=== PATIENT | female | born 1935 | race Hispanic/Latino ===

== ENCOUNTER 2017-03-27 16:57 | Emergency (ER) | payer MEDICARE ==
[2017-03-27 17:16] VITALS: BP 135/82; PULSE 82; RESP 16; TEMP 98.5; O2SAT 98
--- NOTE | 2017-03-27 18:15 | ED PDOC ---
Arrival/HPI - General Historian: Patient EM Caveat: Acuity of Condition - History of Present Illness Time/Duration: Prior to Arrival Symptom Onset: Gradual Activities at Onset: Rest Context: Home (garden) <Jonn Baer - Last Filed: 03/27/17 20:08> <France Good - Last Filed: 03/27/17 20:20> - General Chief Complaint: Allergic Reaction Time Seen by Provider: 03/27/17 17:17 - History of Present Illness Narrative History of Present Illness (Text): 03/27/17 18:01 Patient is a 81 year old female with a past medical history of HTN who presents with complaints of a rash which started on her right arm. Patient states it started with one lesion. Patient states due to itchiness, she began scratching which led to outbreak spreading downward on right forearm as well as left forearm. States a week prior she was gardening and has thorny bushes in her garden. She denies shortness of breath, numbness and tingling, burning sensation , chest pain, n/v/d, dizziness, weakness. (Jonn Baer) Past Medical History - Provider Review Nursing Documentation Reviewed: Yes - Cardiac Hx Cardiac Disorders: Yes Hx Hypertension: Yes - Pulmonary Hx Respiratory Disorders: No - Neurological Hx Neurological Disorder: No - HEENT Hx HEENT Disorder: No - Renal Hx Renal Disorder: No - Endocrine/Metabolic Hx Endocrine Disorders: No - Hematological/Oncological Hx Blood Disorders: No - Integumentary Hx Dermatological Disorder: No - Musculoskeletal/Rheumatological Hx Musculoskeletal Disorders: No - Gastrointestinal Hx Gastrointestinal Disorders: No - Genitourinary/Gynecological Hx Genitourinary Disorders: No - Psychiatric Hx Psychophysiologic Disorder: Yes Hx Anxiety: Yes Hx Substance Use: No <Jonn Baer - Last Filed: 03/27/17 20:08> Family/Social History - Physician Review Nursing Documentation Reviewed: Yes Family/Social History: Other Smoking Status: Never Smoked Hx Alcohol Use: No Hx Substance Use: No <Jonn Baer - Last Filed: 03/27/17 20:08> <France Good - Last Filed: 03/27/17 20:20> Narrative Family History (Free Text): non-contributory 03/27/17 18:23 (Jonn Baer) Allergies/Home Meds <Jonn Baer - Last Filed: 03/27/17 20:08> <Matty Goodrichard - Last Filed: 03/27/17 20:20> Allergies/Adverse Reactions: Allergies No Known Allergies Allergy (Verified 03/27/17 17:15) Review of Systems - Physician Review All systems were reviewed & negative as marked: Yes - Review of Systems Constitutional: Normal. absent: Fatigue, Fevers Eyes: Normal. absent: Vision Changes ENT: Normal Respiratory: absent: SOB, Cough, Wheezing Cardiovascular: absent: Chest Pain, Palpitations Gastrointestinal: absent: Abdominal Pain, Diarrhea, Nausea, Vomiting Skin: Rash, Pruritis, Skin Lesions (B/L arms vesiculo-bullous). absent: Abscess Neurological: Other (denies numbness and tingling). absent: Headache, Dizziness Hemo/Lymphatic: Normal. absent: Adenopathy Psychiatric: Normal <Valdo Baeron - Last Filed: 03/27/17 20:08> Physical Exam Vital Signs Reviewed: Yes Temperature: Afebrile Blood Pressure: Normal Pulse: Regular Respiratory Rate: Normal Appearance: Positive for: Well-Appearing Pain Distress: None Mental Status: Positive for: Alert and Oriented X 3 - Systems Exam Head: Present: Atraumatic, Normocephalic Extroacular Muscles: Present: EOMI Mouth: Present: Moist Mucous Membranes Respiratory/Chest: Present: Clear to Auscultation, Good Air Exchange. No: Wheezes Cardiovascular: Present: Regular Rate and Rhythm, Normal S1, S2. No: Murmurs Abdomen: Present: Normal Bowel Sounds. No: Tenderness, Distention Upper Extremity: Present: Other. No: Tenderness Lower Extremity: Present: Normal Inspection Neurological: Present: CN II-XII Intact Skin: Present: Warm (bilateral upper extremities), Erythematous (B/L upper extremity), Hot (bilateral upper extremities). No: Laceration, Abscess Psychiatric: Present: Alert, Oriented x 3 <BaerValdoJonn - Last Filed: 03/27/17 20:08> Vital Signs Temp Pulse Resp BP Pulse Ox 03/27/17 17:15 98.5 F 82 16 135/82 98 Medical Decision Making <Jonn Baer - Last Filed: 03/27/17 20:08> <France Good - Last Filed: 03/27/17 20:20> ED Course and Treatment: 03/27/17 18:59 Assessment 81 year old female with complaints of B/L upper extremity vesiculopapular lesions Plan - Doxycycline, Prednisone, Atarex, Keflex - Recommend follow up with PMD for further evaluation - Reassess and Disposition (Jonn Baer) 03/27/17 20:18 Patient with nonpurpuric, blanching, erythematous, itchy rash, most consistent with etiology of allergic component. No grave symptoms such as fever or respiratory aspect involved. One area on the right arm with a few cm of further erythema is nontender or fluctuant but possible cellulitis developing - will treat for allergic rash with steroids and antihistamine as well as bacterial with doxy and cephalosporin, and she will f/u pmd. (France Good) - Medication Orders Current Medication Orders: Discontinued Medications Cephalexin Monohydrate (Keflex) 500 mg PO STAT STA PRN Reason: Protocol Stop: 03/27/17 17:44 Last Admin: 03/27/17 17:59 Dose: 500 mg Doxycycline Hyclate (Doryx) 100 mg PO STAT STA PRN Reason: Protocol Stop: 03/27/17 17:42 Last Admin: 03/27/17 17:58 Dose: 100 mg Hydroxyzine HCl (Atarax) 25 mg PO ONCE STA Stop: 03/27/17 17:43 Last Admin: 03/27/17 18:00 Dose: 25 mg Prednisone (Prednisone Tab) 40 mg PO STAT STA Stop: 03/27/17 17:43 Last Admin: 03/27/17 17:59 Dose: 40 mg - PA / [employer] / Resident Statement TRINH has reviewed & agrees with the documentation as recorded. TRINH has examined the patient and agrees with the treatment plan. <France Good - Last Filed: 03/27/17 20:20> Disposition/Present on Arrival - Present on Arrival Any Indicators Present on Arrival: No History of DVT/PE: No History of Uncontrolled Diabetes: No Urinary Catheter: No History of Decub. Ulcer: No History Surgical Site Infection Following: None - Disposition Have Diagnosis and Disposition been Completed?: Yes Disposition Time: 19:30 Patient Plan: Discharge, Other <Jonn Baer - Last Filed: 03/27/17 20:08> <France Good - Last Filed: 03/27/17 20:20> - Disposition Diagnosis: Allergic reaction Disposition: HOME/ ROUTINE Condition: GOOD Additional Instructions: Mrs. Nicolas thank you for letting us take care of you today. The emergency medical care you received today was directed at your acute symptoms. If you were prescribed any medication, please fill it and take as directed. It may take several days for your symptoms to resolve. Return to the Emergency Department if your symptoms worsen, do not improve, or if you have any other problems. Please contact your doctor for a follow up appointment regarding your Emergency Department visit. Our treatment cannot replace ongoing medical care by a primary care provider (PCP) outside of the emergency department. Thank you for allowing the [facility] team to be part of your care today. Prescriptions: Cefadroxil [Duricef] 500 mg PO BID #20 cap Doxycycline Monohydrate 100 mg PO BID #20 capsule hydrOXYzine HCl [Atarax] 25 mg PO Q8H #15 tab Prednisone [Deltasone] 20 mg PO BID 4 Days #8 tablet Referrals: Mike Muñoz MD [Primary Care Provider] - Follow up with primary Forms: [employer] (Al[place]ian)
== END 2017-03-27 20:09 | disposition home or self-care (01) ==
LOC: ED 16:57
DX: T78.40XA Allergy, unspecified, initial encounter (principal); X58.XXXA Exposure to other specified factors, initial encounter; I10 Essential (primary) hypertension